=== PATIENT | female | born 1965 | race Caucasian/White ===

== ENCOUNTER 2020-07-23 17:58 | Outpatient (CLI) | payer BC, SELFPAY ==
--- NOTE | ~2020-07-23 | MM_ITS ---
EXAMINATION: MM screening fara BI w angelo HISTORY: Screening TECHNIQUE: Craniocaudal and mediolateral oblique 3-D tomosynthesis images were obtained and synthetic 2-D images were generated. CAD analysis was submitted and interpreted. COMPARISON: Comparison to multiple prior studies sequentially, with oldest reviewed study dated 02/11. BREAST PARENCHYMAL COMPOSITION: The breasts are extremely dense, which lowers the sensitivity of mamm ography. FINDINGS: There is focal asymmetry centrally in the right breast on CC view. The left breast is stabl e without evidence for malignancy. IMPRESSION: 1. Focal right breast asymmetry. 2. Additional mammographic views and possible breast ultrasound are recommended. BI-RADS Category 0: Incomplete: Needs additional imaging evaluation. Reviewed, dictated and finalized at location A. IMPRESSION: 1. Focal right breast asymmetry. 2. Additional mammographic views and possible breast ultrasound are recommended . BI-RADS Category 0: Incomplete: Needs additional imaging evaluation.
== END 2020-07-23 17:59 | disposition home or self-care (01) ==
LOC: ANHIMG 18:01
PROVIDERS: PCP Family Medicine; Visit Provider Nurse Practitioner Obstetrics & Gynecology
DX: Z12.31 Encounter for screening mammogram for malignant neoplasm of breast (principal); R92.8 Other abnormal and inconclusive findings on diagnostic imaging of breast
CPT/HCPCS: 77063; 77067

== ENCOUNTER → 2020-08-08 08:01 | Outpatient (CLI) | payer BC, SELFPAY ==
--- NOTE | ~2020-08-08 | MM_ITS ---
Corrected Report Removed Yoel Charges 08/08/2020 [facility] EXAMINATION: MM diagnostic fara RT HISTORY: Focal right breast asymmetry reported centrally in the right breast on screening craniocaudal view of 07/23/2020 TECHNIQUE: Additional 3-D tomosynthesis images of the right breast were performed and synthetic 2-D images were generated. Rolled medial and rolled lateral craniocaudal views. CAD analysis was submitted and interpreted. COMPARISON: 07/23/2020 bilateral digital screening mammogram FINDINGS: No reproducible mass or architectural distortion is identified at the area questioned on the CC view of 07/23/2020. IMPRESSION: 1. No mammographic evidence of malignancy 2. Routine mammographic screening is recommended. BI-RADS Category 1: Negative Reviewed, dictated and finalized at location A. MTDD
== END ==
PROVIDERS: PCP Family Medicine; Visit Provider Nurse Practitioner Obstetrics & Gynecology
DX: R92.8 Other abnormal and inconclusive findings on diagnostic imaging of breast (principal)
CPT/HCPCS: 77061; 77065; G0279

== ENCOUNTER 2020-11-09 01:14 | Outpatient (CLI) | payer OTHER, SELFPAY ==
[2020-11-09 19:31] LABS: SARS-CoV-2 RNA PCR Negative
== END 2020-11-09 01:15 | disposition home or self-care (01) ==
LOC: ANHCOVIDDT 01:14
PROVIDERS: PCP Family Medicine; Visit Provider Surgery Plastic and Reconstructive Surgery
DX: Z01.818 Encounter for other preprocedural examination (principal); Z20.828 Contact with and (suspected) exposure to other viral communicable diseases
CPT/HCPCS: 87635; C9803; U0003

== ENCOUNTER 2020-11-11 09:31 | Outpatient (CLI) | payer SELFPAY ==
--- NOTE | 2020-11-11 09:32 | ECG_ITS ---
Measurements Intervals [place] Rate: 50 P: 62 UT: 150 QRS: -2 QRSD: 101 T: 36 QT: 420 QTc: 386 Interpretive Statements SINUS BRADYCARDIA DELAYED PRECORDIAL R/S TRANSITION BASELINE WANDER- V3-V6 BORDERLINE ECG Electronically Signed On 11-11-2020 9:55:08 [employer] by Jorge A Mendez D.O.
[2020-11-11 09:58] LABS: Hematocrit 42.5 % (37.0-47.0)
== END 2020-11-11 09:32 | disposition home or self-care (01) ==
LOC: ANHSURGERY 09:32
PROVIDERS: Anesthesiology; PCP Family Medicine; Visit Provider Surgery Plastic and Reconstructive Surgery
DX: Z41.1 Encounter for cosmetic surgery (principal); L57.4 Cutis laxa senilis; R94.31 Abnormal electrocardiogram [ECG] [EKG]
CPT/HCPCS: 36415; 85014; 85018; 93005

== ENCOUNTER 2020-11-12 00:16 | Day surgery (SDC) | payer OTHER, SELFPAY ==
[2020-11-05 14:29] VITALS: BMI 21.4
--- NOTE | 2020-11-11 12:48 | WPDANESEPPF ---
Anes - Initial Pre Proc Eval Procedure: Operation Date: 11/12/20 12:00 Proposed Procedures p Abdominoplasty - Vasu Tabor MD s Bilateral Mastopexy - Vasu Tabor MD Date/Time: 11/11/20 12:48 Surgeon: Vasu Tabor MD Pre Op Diagnosis: Skin Laxity Patient Data Age: 55 Gender: F Height: 1.63 m Weight: 56.81 kg Allergies Allergy/AdvReac Type Severity Reaction Status Date / Time Contrast Media Allergy Intermediate Rash/itchin Uncoded 11/12/20 10:58 g Home Medications Medication Instructions Recorded Confirmed Type estradiol 0.05 mg/24 hr semiweekly 1 patch TRANSDERM 2XW 12/25/19 11/05/20 History transdermal patch ibuprofen 200 mg tablet 200 mg PO Q6H PRN 08/07/20 11/05/20 History docusate sodium 100 mg capsule 100 mg PO DAILY #14 cap 10/30/20 11/05/20 Rx ondansetron HCl 4 mg tablet 4 mg PO Q8H #24 tablet 10/30/20 11/05/20 Rx carisoprodol 350 mg tablet 350 mg PO TID PRN #21 tablet 10/31/20 11/05/20 Rx oxycodone-acetaminophen 5 mg-325 1 tablet PO Q6H PRN #15 tablet 10/31/20 11/05/20 Rx mg tablet tramadol 50 mg tablet 50 mg PO BID PRN #60 tablet 11/05/20 11/12/20 Rx Patient hx anesthesia problems: none Family hx anesthesia problems: none PMFSH Past Medical History Medical History Anxiety Chronic low back pain Chronic neck pain Depression Diverticulosis Gastritis GERD (gastroesophageal reflux disease) Surgical History Surgical History History of cholecystectomy 2000 History of spinal fusion ~2009 Family History Family History Sibling Patient's sister is in good health Patient's brother is in good health Social History Social History Smoking status: Never smoker Second hand tobacco smoke exposure: No Alcohol intake: current Alcohol use details: STATES MAYBE 1 DRINK A MONTH Substance use: never Substance use type: does not use Living arrangements: alone Gender identity (if verbalized by the patient): Female Anes - Eval Final PreProcedure Day of Procedure 11/11/20 12:48 Patient weight: normal Heart: regular rate and rhythm Lungs: clear to auscultation and normal air movement Airway: Mallampati scale class 1 Neurological: alert and oriented Last oral intake: >/= 8 hours ASA classification: II Emergent: no Anesthetic plan: proceed Anesthesia type and monitoring: general ETT and standard monitoring Informed Consent: The patient's anesthetic plan and its attendant risks and benefits were discussed with the patient/family/POA. Questions were solicited and answers provided to the satisfaction of the patient/family/POA.
[2020-11-12] VITALS (14 sets, daily range): BP systolic 111–147; BP diastolic 62–90; PULSE 57–97; RESP 14–18; TEMP 36.6–37.8; O2SAT 92–100
[2020-11-12 10:50] LABS: Urine Cotinine NEGATIVE
[2020-11-12] MEDS: LACTATED RINGERS 1,000 ML 30 ML IV CONT ×2 (10:54→18:16)
--- NOTE | 2020-11-12 12:43 | WPDHPUPDATE1 ---
History and Physical Update Update Date/Time: 11/12/20 12:43 History and Physical has been reviewed, including an updated exam of the patient. There are NO changes in the patient's condition. Risks, benefits, and alternatives have been discussed and questions answered. Patient agrees to proceed with procedure.
--- NOTE | 2020-11-12 13:23 | PM.PROC ---
Procedure Note - Detailed Date of procedure: 11/12/20 Pre-op diagnosis: Skin Laxity Post-op diagnosis: same Procedure performed: 1. Bilateral mastopexy with galaflex 2. Progressive tension abdominoplasty Description of procedure: She is here today for abdominoplasty and mastopexy with galaflex. Previously and again today the risks, benefits, alternatives were discussed in extensive detail. I wanted her to be very realistic about the risks involved as well as expectations. We discussed aftercare and what to monitor for. I was very upfront about the risks of wound breakdown leading to loss of skin, open wounds, and need for additional procedures with permanent abdominal deformity. We discussed DVT/PE risks and management. Made sure answered all of her questions to her satisfaction today and consent was obtained. She was marked in the preoperative holding area with their verification. The patient was taken to the operating room placed supine on the operating table. Anesthesia was provided by anesthesiology. A floyd catheter was started. She was prepped and draped in a standard sterile fashion. A surgical time-out was taken. A tumescent solution was used to provide anesthesia. I tailor tacked the breast into position based on preoperative markings and placed her in a sitting position. A verified these markings and marked the nipple-areolar complex at 38 mm. She did have a degree of asymmetry that was identified to her preoperatively. She was placed supine. I de-epithelialized a superior pedicle. I then made the remainder of the incisions. I created an auto augmentation flap based on the intercostal perforators inferiorly-based which was placed under the breast tissue superficial to the pectoralis fascia. This was sutured in place with a 2-0 PDS. I elevated medial and lateral breast flaps. I then inset the gallop flex which had been soaking in a Betadine triple antibiotic solution. This was sutured in place with 2-0 PDS. And closed using 2-0 PDS along the IMF and vertically. This was followed by 3-0 strata fix along the IMF and 3-0 Monocryl vertically. 3-0 Monocryl around the areola followed by running subcuticular 4-0 Monocryl. Steri-Strips were placed. I then proceeded the abdominoplasty. I placed the patient in a flexed position to verify the upper and lower markings would reach. I then placed her supine. A thorough abdominal examination was completed. Stab incisions were made and used tumescent solution. A 10 blade was used to make the upper incision. I continued dissection down to the level of fascia. Elevated just what was necessary for repair of the diastasis and discontinuous undermining otherwise. I then again flexed the bed to verify the upper skin flap would reach the lower markings without tension. Once verified I placed her supine once again and a 10 blade used to make the lower incision. I elevated up to level the umbilicus and left the umbilicus intact on a well-vascularized stalk. The intervening tissue was removed. A 2 mm blunt cannula and Exparel which was mixed 20 cc in 100 cc for a total volume of 120 cc I injected deep to the fascia bilaterally as well as along the incision lines. I plicated the diastasis recti using 0 PDO stratafix barbed suture. This was in 2 separate layers using 2 separate sutures as well. I also completed plication lateral to rectus at level of umbilicus using 0 POD stratafix barbed suture in 2 layers. I repaired around the umbilicus leaving plenty of room for well-vascularized stalk of the umbilicus with 2-0 PDS. The patient was flexed and starting from superior to inferior began plication using 2-0 Vicryl to obliterate all space in a standard progressive tension fashion. At the umbilicus I marked out the location of the skin and inset this with 3-0 Monocryl and 4-0 nylon. I continued the remainder of the plication using 2-0 Vicryl until I reached my lower planned scar line. I t
--- NOTE | 2020-11-12 13:34 | SUR.PREOP ---
1200 pt informed delay in procedure.
[2020-11-12] MEDS: ceFAZolin 2 GM/D5W 50 ML 2 GM/50 ML BAG IVPB (13:36)
--- NOTE | 2020-11-12 15:02 | SUR.OPER ---
Galaflex Scaffold Lot [id number], Exp 2023-04-14. To field 1500 and placed in Pharmacy Antibiotic Irrigation immediately.
--- NOTE | 2020-11-12 15:24 | SUR.OPER ---
GalaFlex Scaffold placed in bilateral breasts
--- NOTE | 2020-11-12 16:51 | SUR.OPER ---
Total Tumescent Used Bilateral Breasts 249ml, Abdominoplasty 563ml. Pharmacy antibiotic irrigation/1 bottle to sterile field. Local to field Lidocaine 1% with epi/Bupivicaine .25% not used/pharmacy notified to credit. 1 bag of Tumescent not used and pharmacy notified to credit/returned.
[2020-11-12] MEDS: ceFAZolin SODIUM 1 GM VIAL IV PUSH (17:30)
[2020-11-12] MEDS: fentaNYL CITRATE INJ (*CRX) 100 MCG/2 ML VIAL 25 MCG IV PUSH ×8 (18:24→19:01)
--- NOTE | 2020-11-12 18:39 | SUR.PHASEI ---
1815; UPON ARRIVAL TO PACU. CORREA DRAINING CLEAR YELLOW URINE. [facility] STATES PT HAS HAD 2600 IVF TODAY AND 100CC CLEAR YELLOW URINE PER CORREA. SHE ASKED THAT I IRRIGATE CORREA. 1824; CORREA IRRIGATED WITH 50ML STERILE SALINE. FLUSHED EASILY, 50ML RETURNED. NO PROBLEMS. PT C/O URGENCY. CORREA PATENT AND DRAINING.
--- NOTE | 2020-11-12 18:56 | SUR.PHASEI ---
PT DROWSY. SAO2 DROPPED TO 87% ON ROOM AIR. ENCOURAGED SLOW DEEP BREATHS. O2 2L NC APPLIED. RESP EVEN UNLABORED. P,W,D. PT STATES SHE WOULD STILL LIKE TO GO HOME. C/O URGE TO URINATE. CORREA PATENT AND DRAINING.
--- NOTE | 2020-11-12 19:25 | SUR.PHASEI ---
1899; PT DECIDED TO STAY OVERNIGHT. PT REMAINS ON OXYGEN 2L NC. 1914; CALLED DR ELLIS INFORMING HIM OF PT'S DECISION TO STAY. HE WILL PUT ORDERS IN COMPUTER. 1924; PT SLEEPING. REMAINS IN FLEXED POSITION.
[2020-11-12] MEDS: HYDROmorphone HCL INJ (*CRX) 1 MG/ML SYR 0.5 MG IV PUSH (20:00)
--- NOTE | 2020-11-12 20:08 | SUR.PHASEI ---
PT AWAKE AND ALERT. TALKATIVE. EATING ICE CHIPS. REMAINS ON O2.
--- NOTE | 2020-11-12 20:27 | PC.NURSE ---
Pt transferred from recovery room to room 287. Pt alert & oriented x 3.
[2020-11-12] MEDS: ONDANSETRON INJ 4 MG/2 ML VIAL IV PUSH (21:07)
[2020-11-12] MEDS: MORPHINE SULFATE (*CRX) 2 MG/ML INJ IV PUSH (21:07)
[2020-11-12] MEDS: oxyCODONE/ACETAMINOPHEN (*CRX) 5-325 MG TABLET PO (22:20)
[2020-11-12] MEDS: carisoprodoL (*CRX) 350 MG TABLET PO (23:46)
[2020-11-13] MEDS: MORPHINE SULFATE (*CRX) 2 MG/ML INJ IV PUSH (02:55)
[2020-11-13] MEDS: oxyCODONE/ACETAMINOPHEN (*CRX) 5-325 MG TABLET PO ×2 (05:12→11:06)
[2020-11-13] MEDS: carisoprodoL (*CRX) 350 MG TABLET PO ×2 (05:13→11:05)
[2020-11-13 05:15] VITALS: BP 113/67; PULSE 58; RESP 16; TEMP 37.5; O2SAT 97
--- NOTE | 2020-11-13 06:48 | WPDPN ---
Progress Note: A&P Assessment and Plan (1) Encounter for cosmetic surgery: Code(s): Z41.1 - Encounter for cosmetic surgery Status: Acute Assessment and Plan: Doing very well after mastopexy and progressive tension abdominoplasty. Discharge home. Today we had a lengthy discussion about her care. What monitor for. She would like to increase her pain medication and she can take up to 2 Percocet at a time and she is going to alternate with ibuprofen 600 mg. She understands that if she has any gastrointestinal upset to discontinue the ibuprofen. She is going to take ibuprofen for 5 days as needed. We discussed what monitor for. The care at home. Made sure answered all of her questions this lengthy open-ended conversation today. (2) Chronic neck pain: Code(s): M54.2 - Cervicalgia; G89.29 - Other chronic pain Status: Acute (3) Chronic low back pain: Code(s): M54.5 - Low back pain; G89.29 - Other chronic pain Status: Acute (4) Depression: Code(s): F32.9 - Major depressive disorder, single episode, unspecified Status: Acute (5) Anxiety: Code(s): F41.9 - Anxiety disorder, unspecified Status: Acute (6) GERD (gastroesophageal reflux disease): Code(s): K21.9 - Gastro-esophageal reflux disease without esophagitis Status: Acute Time Spent With Patient Time: 20 Review of Systems Review of Systems: All systems reviewed & are unremarkable except as noted in HPI and below Exam Narrative: Exam Narrative: Bilateral breasts are soft. No signs of infection. No hematoma. No seroma. Good color and capillary refill. Abdomen is healing well. No signs of infection. No hematoma. No seroma. Good color and capillary refill. No calf tenderness. Negative Homans. Const: General: comfortable, no acute distress, alert and awake; No acute distress Orientation/consciousness: oriented to person HENMT: Head: normal to inspection Ears: external ears normal General nose exam: Normal external nose present Face and sinus: normal facial exam Eyes: General: appearance normal, both eyes and all related structures Periorbital: periorbital findings normal Eyelids: eyelids normal Conjunctivae: conjunctivae normal Neck: Neck: normal visual inspection Chest: Chest palpation & inspection: normal inspection of the chest Resp: Effort & Inspection: normal respiratory effort and able to speak in complete sentences GI: Inspection: normal to inspection Neuro: General: oriented to person Psych: Appearance: grossly normal Mental Status: mental status grossly normal Objective Data Vital Signs Vital Signs: Vital Signs - 24 hr 11/12/20 10:14 11/12/20 18:16 11/12/20 18:30 Temperature 36.8 C 36.8 C 36.7 C Pulse Rate 57 L 75 67 Respiratory Rate 16 16 14 Blood Pressure 147/90 H 122/85 128/78 Pulse Oximetry 100 100 100 11/12/20 18:45 11/12/20 19:00 11/12/20 19:15 Temperature 36.7 C 36.7 C 36.7 C Pulse Rate 72 70 66 Respiratory Rate 18 14 16 Blood Pressure 123/78 114/71 119/72 Pulse Oximetry 92 97 95 11/12/20 19:30 11/12/20 19:45 11/12/20 20:30 Temperature 37.8 C H Pulse Rate 68 70 79 Respiratory Rate 14 16 16 Blood Pressure 111/68 124/78 123/74 Pulse Oximetry 95 96 99 11/12/20 20:45 11/12/20 21:00 11/12/20 21:30 Temperature 37.3 C 36.6 C Pulse Rate 97 84 88 Respiratory Rate 16 16 Blood Pressure 131/75 120/83 124/72 Pulse Oximetry 99 99 98 11/12/20 22:00 11/12/20 23:00 11/13/20 05:15 Temperature 37.6 C H 37.5 C Pulse Rate 67 77 58 L Respiratory Rate 16 16 Blood Pressure 113/65 113/62 113/67 Pulse Oximetry 98 98 97 Intake/Output Intake/Output: Intake & Output 11/10/20 11/11/20 11/12/20 11/13/20 23:59 23:59 23:59 23:59 Intake Total 390 Output Total 250 250 Balance 140 -250 Meds/Results Medications: Active Medications Generic Name Dose Route Start Last Admin Trade Name Freq PRN Reason Stop Dose Admin Ca
--- NOTE | 2020-11-13 06:54 | PM.DS ---
DS: Admitting Diagnosis Admitting Diagnosis Admitting Diagnosis: Encounter for cosmetic surgery DS: Discharge Diagnosis Discharge Diagnosis (1) Encounter for cosmetic surgery: Code(s): Z41.1 - Encounter for cosmetic surgery Status: Acute Assessment and Plan: Will discharge home. Follow up in 1 week. (2) Chronic neck pain: Code(s): M54.2 - Cervicalgia; G89.29 - Other chronic pain Status: Acute (3) Chronic low back pain: Code(s): M54.5 - Low back pain; G89.29 - Other chronic pain Status: Acute (4) Depression: Code(s): F32.9 - Major depressive disorder, single episode, unspecified Status: Acute (5) Anxiety: Code(s): F41.9 - Anxiety disorder, unspecified Status: Acute (6) GERD (gastroesophageal reflux disease): Code(s): K21.9 - Gastro-esophageal reflux disease without esophagitis Status: Acute DS: Summary Hospital Course Hospital Course: Patient underwent bilateral breast mastopexy and progressive tension abdominoplasty. Postoperatively she has done well. She is tolerating diet. Ambulating. Pain has control. We will plan for discharge home. I am going to see her back in a week. She has a full list of instructions as was discussed and written below. Time Spent with Patient Time attestation: Total time spent providing and/or coordinating discharge services: 20 minutes Exam Narrative: Exam Narrative: Bilateral breasts are soft. No signs of infection. No hematoma. No seroma. Good color and capillary refill. Abdomen is healing well. No signs of infection. No hematoma. No seroma. Good color and capillary refill. No calf tenderness. Negative Homans. Const: General: comfortable, no acute distress, alert and awake; No acute distress Orientation/consciousness: oriented to person HENMT: Head: normal to inspection Ears: external ears normal General nose exam: Normal external nose present Face and sinus: normal facial exam Eyes: General: appearance normal, both eyes and all related structures Periorbital: periorbital findings normal Eyelids: eyelids normal Conjunctivae: conjunctivae normal Neck: Neck: normal visual inspection Chest: Chest palpation & inspection: normal inspection of the chest Resp: Effort & Inspection: normal respiratory effort and able to speak in complete sentences GI: Inspection: normal to inspection Neuro: General: oriented to person Psych: Appearance: grossly normal Mental Status: mental status grossly normal DS: Data Data Completed and Pending Labs on day of discharge: Labs from last 24 hours 11/12/20 10:11 Cotinine Negative Discharge Plan Discharge Patient Disposition: Home, Self-Care Discharge Instructions: POST OPERATIVE DISCHARGE INSTRUCTIONS FOR: Abdominoplasty / Mastopexy RED ELLIS M.D. [facility] [address] [facility] [address] [place] [address] [address] for 24 hours after anesthesia and while you are taking pain medication. Take all prescribed medication as directed Diet as tolerated. Begin gentle shoulder rolls and arm stretches 10 times per hour. No lifting or activity that raises blood pressure for 48 hours. No straining or lifting more than 20 pounds for 6 weeks. Remain flexed at the abdomen overnight at all times. Never fully extend / flatten. Slowly stand up straight as tolerated over the next week. Regular walking / ambulation. No showering until directed to. No pools or tubs for at least 2 weeks. Call with any questions or concerns. After 24 hours you may remove the dressings and bra / binder. At this point my may shower. Do not take pain medication before showering as the combination of medication and heat may cause you to feel dizzy or pass out. Let soap and water run over your incisions. Do not scrub or directly wash your incision. Replace the surgical bra / binder and wear it 23 hours
--- NOTE | 2020-11-13 07:15 | WPDANESPN ---
Anes - Prog Note Post-Op Date/Time: 11/13/20 07:15 Cardiovascular status: normal Respiratory status: normal Airway patency: baseline Mental status: baseline Post-Op hydration status: normal Vital Signs: Last Vital Signs Temp 99.5 F 11/13/20 05:15 Pulse 58 L 11/13/20 05:15 Resp 16 11/13/20 05:15 BP 113/67 11/13/20 05:15 Pulse Ox 97 11/13/20 05:15 Pain Score (VAS): 2/10 I/O: Intake & Output 11/12/20 11/12/20 11/13/20 15:59 23:59 07:59 Intake Total 50 340 Output Total 250 250 Balance 50 90 -250 11/12/20 10:11 Cotinine Negative Post-procedural complaints: none Patient Feedback: Patient satisfied with anesthetic care.
[2020-11-13] MEDS: IBUPROFEN 600 MG TABLET PO (07:24)
[2020-11-13 08:20] VITALS: BP 96/63; PULSE 59; RESP 18; TEMP 37.1; O2SAT 97
[2020-11-13] MEDS: ENOXAPARIN 40 MG/0.4 ML SYRINGE SUB-Q (08:48)
[2020-11-13] MEDS: DOCUSATE SODIUM 100 MG CAPSULE PO (08:48)
== END 2020-11-13 11:53 | disposition home or self-care (01) ==
LOC: ANHSURGERY 13:29 → ANHOB2 20:14
PROVIDERS: PCP Family Medicine; Visit Provider Surgery Plastic and Reconstructive Surgery
PROC: (CPT 19316; principal; 2020-11-12 12:00)
PROC: (CPT 19316; 2020-11-12 12:00)
DX: Z41.1 Encounter for cosmetic surgery (principal); L57.4 Cutis laxa senilis; G89.29 Other chronic pain; M54.2 Cervicalgia; M54.9 Dorsalgia, unspecified; Z98.1 Arthrodesis status
CPT/HCPCS: 19316; 15777 ×2; 15830; 15847; 80307; 99199; A9270; C9290; J0171; J0330; J0690; J1100; J1170; J1580; J1650; J2250; J2270; J2370; J2405; J2704; J3010; J7120

== ENCOUNTER → 2021-08-13 13:53 | Outpatient (CLI) | payer OTHER, SELFPAY ==
--- NOTE | ~2021-08-13 | MM_ITS ---
EXAMINATION: MM screening fara BI w angelo HISTORY: Screening TECHNIQUE: Craniocaudal and mediolateral oblique 3-D tomosynthesis images were obtained and synthetic 2-D images were generated. CAD analysis was submitted and interpreted. COMPARISON: Comparison to multiple prior studies sequentially, with oldest reviewed study dated 04/14. BREAST PARENCHYMAL COMPOSITION: The breasts are heterogeneously dense, which may obscure small masses . FINDINGS: There has been interval change of bilateral breast reduction/lift surgery. There is no evid ence of suspicious mass, calcification, or architectural distortion to suggest malignancy in either b reast. There has been no suspicious interval change. IMPRESSION: 1. No mammographic evidence of malignancy. 2. Recommend routine screening mammography in one year. BI-RADS Category 2: Benign finding(s). Reviewed, dictated and finalized at location A.
== END ==
PROVIDERS: Visit Provider Nurse Practitioner Obstetrics & Gynecology
DX: Z12.31 Encounter for screening mammogram for malignant neoplasm of breast (principal)
CPT/HCPCS: 77063; 77067

== ENCOUNTER 2023-01-14 17:17 | Outpatient (CLI) | payer OTHER, SELFPAY ==
--- NOTE | ~2023-01-14 | MM_ITS ---
EXAMINATION: MM screening fara BI w angelo HISTORY: Screening TECHNIQUE: Craniocaudal and mediolateral oblique 3-D tomosynthesis images were obtained and synthetic 2-D images were generated. CAD analysis was submitted and interpreted. COMPARISON: Comparison to multiple prior studies sequentially, with oldest reviewed study dated 07/12. BREAST PARENCHYMAL COMPOSITION: The breasts are extremely dense, which lowers the sensitivity of mamm ography FINDINGS: There are nodular asymmetries in the lower central aspect of the right breast anteriorly wi th possible architectural distortion. The left breast is stable. No discrete mass, architectural dist ortion or suspicious calcifications. IMPRESSION: 1. Nodular asymmetries with possible architectural distortion in the lower central aspect of the righ t breast anteriorly. Dense breasts limit mammographic sensitivity. 2. Recommend additional spot compression and mediolateral views of the right breast with complete gini ateral breast ultrasound. BI-RADS Category 0: Incomplete: Needs additional imaging evaluation. Reviewed, dictated and finalized at location B. [employer]IC PHOTOGRAPHER IMPRESSION: 1. Nodular asymmetries with possible architectural distortion in the lower cent ral aspect of the right breast anteriorly. Dense breasts limit mammographic sen sitivity. 2. Recommend additional spot compression and mediolateral views of the right br east with complete bilateral breast ultrasound. BI-RADS Category 0: Incomplete: Needs additional imaging evaluation.
== END 2023-01-14 17:18 | disposition home or self-care (01) ==
PROVIDERS: PCP Family Medicine; Visit Provider Nurse Practitioner Obstetrics & Gynecology
DX: Z12.31 Encounter for screening mammogram for malignant neoplasm of breast (principal); R92.8 Other abnormal and inconclusive findings on diagnostic imaging of breast
CPT/HCPCS: 77063; 77067

== ENCOUNTER → 2023-02-16 07:54 | Outpatient (CLI) | payer OTHER, SELFPAY ==
--- NOTE | ~2023-02-16 | MMUS_ITS ---
EXAMINATION: MM diagnostic fara RT w angelo, US breast BI complete HISTORY: Nodular asymmetries with possible architectural distortion reported in the lower central asp ect of the right breast anteriorly in addition to bilateral dense breasts on 01/14/2023 bilateral scree prabhu mammogram examination TECHNIQUE: Additional 3-D tomosynthesis images of were performed and synthetic 2-D images were genera vinnie. CAD analysis was submitted and interpreted. High resolution breast ultrasound was performed. COMPARISON: 08/13/2021, 01/14/2023 bilateral screening mammogram examinations BREAST PARENCHYMAL COMPOSITION: The breasts are heterogeneously dense, which may obscure small masses . FINDINGS: MAMMOGRAPHIC FINDINGS: There is stable right architectural distortion since 08/13/2021; there is a history of breast lists butcher rgery in October 2020. No suspicious mass, malignant calcification, skin thickening or retraction is noted. ULTRASOUND: No suspicious mass or shadowing, cyst or other significant abnormality in either breast is detected s onographically. IMPRESSION: 1. Postoperative changes of the breasts from breast lift in October 2020; no mammographic or sonogra phic evidence of malignancy 2. Routine annual mammographic screening is recommended BI-RADS Category 2: Benign finding(s). Reviewed, dictated and finalized at location A. IMPRESSION: 1. Postoperative changes of the breasts from breast lift in October 2020; no m ammographic or sonographic evidence of malignancy 2. Routine annual mammographic screening is recommended BI-RADS Category 2: Benign finding(s).
== END ==
PROVIDERS: PCP Family Medicine; Visit Provider Nurse Practitioner Obstetrics & Gynecology
DX: R92.8 Other abnormal and inconclusive findings on diagnostic imaging of breast (principal)
CPT/HCPCS: 76641; 77061; 77065; G0279

== ENCOUNTER 2024-03-11 07:56 | Outpatient (CLI) | payer OTHER, SELFPAY ==
--- NOTE | ~2024-03-11 | MM_ITS ---
EXAMINATION: MM screening fara BI w angelo HISTORY: Screening mammogram TECHNIQUE: Craniocaudal and mediolateral oblique 3-D tomosynthesis images were obtained and synthetic 2-D images were generated. CAD analysis was submitted and interpreted. COMPARISON: February 16, 2023 right diagnostic mammogram and bilateral complete breast ultrasound examina tion January 14, 2023 lateral screening mammogram BREAST PARENCHYMAL COMPOSITION: FINDINGS: There is a history of bilateral breast lift surgery in 2019. There is stable mild fibroglandular asymmetry since 01/14/2023. There is no evidence of suspicious mass, calcification, or architectural distortion to suggest malig itzel in either breast. There has been no suspicious interval change. IMPRESSION: 1. Bilateral fibroglandular asymmetry likely secondary to bilateral breast lift surgery. No mammograp hic evidence of malignancy. 2. Recommend routine screening mammography in one year. BI-RADS Category 2: Benign finding(s). Reviewed, dictated and finalized at location A. IMPRESSION: 1. Bilateral fibroglandular asymmetry likely secondary to bilateral breast lift surgery. No mammographic evidence of malignancy. 2. Recommend routine screening mammography in one year. BI-RADS Category 2: Benign finding(s).
== END 2024-03-11 07:57 ==
LOC: MICIMG 07:57
PROVIDERS: PCP Nurse Practitioner Obstetrics & Gynecology; Visit Provider Nurse Practitioner Obstetrics & Gynecology
DX: Z12.31 Encounter for screening mammogram for malignant neoplasm of breast (principal)
CPT/HCPCS: 77063; 77067

== ENCOUNTER 2024-08-27 17:37 | Emergency (ER) | payer OTHER, SELFPAY ==
[2024-08-27 17:40] VITALS: BP 118/73; PULSE 65; RESP 16; TEMP 36.6; O2SAT 99
[2024-08-27 20:36] VITALS: BP 116/79; PULSE 71; RESP 14; O2SAT 98
--- NOTE | 2024-08-27 21:53 | PC.NURSE ---
Pt states that she can't wait any longer because she has no one to let her dogs out. States that she will follow up with her dr this week to get an us appt. Pt axox4 at this time. Ambulatory with steady gait. Encouraged pt to come back if needs.
--- NOTE | 2024-08-27 21:53 | ED.ABDPAIN ---
HPI - Abdominal Pain General Chief Complaint: Abdominal Pain Stated Complaint: abd pain Time Seen by Provider: 08/27/24 20:30 Related Data Allergies Allergy/AdvReac Type Severity Reaction Status Date / Time gadobenic acid Allergy Intermediate rash/itchin Verified 08/27/24 17:39 [From contrast - MRI] g Iodine and Iodide Containing Allergy Intermediate rash/itchin Verified 08/27/24 17:39 Produc g iohexol Allergy Intermediate Rash/itchin Verified 08/27/24 17:39 [From contrast - CT, X-RAY] g amoxicillin [From Augmentin] AdvReac Unknown Diarrhea Verified 08/27/24 17:39 clavulanic acid AdvReac Unknown Diarrhea Verified 08/27/24 17:39 [From Augmentin] Contrast Media Allergy Intermediate Rash/itchin Uncoded 03/10/24 08:55 g PMFSH Past Medical History Medical History Anxiety Chronic low back pain Chronic neck pain Depression Diverticulosis Gastritis GERD (gastroesophageal reflux disease) Surgical History Surgical History History of abdominoplasty 10/2020 History of cholecystectomy 1999 History of mastopexy 10/2020 History of spinal fusion ~2009 Family History Family History Sibling Patient's sister is in good health Patient's brother is in good health Social History Social History Smoking status: Never smoker Second hand tobacco smoke exposure: No Alcohol intake: current Alcohol use details: STATES MAYBE 1 DRINK A MONTH Substance use: never Substance use type: does not use Living arrangements: with family Occupation/Education: occupation Gender identity (if verbalized by the patient): Female Sexual Orientation (if Verbalized by the Patient): Straight or Heterosexual Spiritual care concerns: No Course Vital Signs Vital signs: Vital Signs Temperature 36.6 C 08/27/24 17:40 Pulse Rate 65 08/27/24 17:40 Respiratory Rate 16 08/27/24 17:40 Blood Pressure 118/73 08/27/24 17:40 Pulse Oximetry 99 08/27/24 17:40 Oxygen Delivery Room Air 08/27/24 17:40 Temperature 36.6 C 08/27/24 17:40 Pulse Rate 71 08/27/24 20:36 Respiratory Rate 14 08/27/24 20:36 Blood Pressure 116/79 08/27/24 20:36 Pulse Oximetry 98 08/27/24 20:36 Oxygen Delivery Room Air 08/27/24 17:40 Discharge Plan Discharge Clinical Impression: Abdominal pain Patient Disposition: Left Without Being Sn Triaged Instructions: Antibiotic Form Prescriptions: No Action tramadol 50 mg tablet 50 mg PO BID PRN (Reason: pain) Qty: 60 0RF Follow-up/Referrals: Raul Matson MD [Primary Care Provider] -
== END 2024-08-27 21:53 | disposition left against medical advice (07) ==
PROVIDERS: Emergency Provider Registered Nurse; PCP Family Medicine
DX: R10.9 Unspecified abdominal pain (principal)
CPT/HCPCS: 99199